=== PATIENT | female | born 1995 | race Caucasian/White ===

== ENCOUNTER 2017-01-21 13:28 | Emergency (ER) | payer SELFPAY ==
[2017-01-21] MEDS ORDERED: SENEXON-S 50 MG1 TAB PO (14:48)
[2017-01-21] MEDS ORDERED: PRENA1 CHEW1 CT1 PO (14:48)
[2017-01-21 15:09] VITALS: BP 116/76
== END 2017-01-21 15:09 | disposition home or self-care (01) ==
LOC: ED 13:28
DX: K59.00 Constipation, unspecified (principal); Z33.1 Pregnant state, incidental